=== PATIENT | female | born 1965 | race Two or more races ===

== ENCOUNTER → 2023-10-23 | Outpatient (CLI) | payer BC ==
[~2023-10-23] VITALS: Ht 152.4 cm; Wt 99.8 kg
[2023-10-23] MEDS: ADENOSINE 84 MG in GIVE UN-DILUTED 0 ML IV STA (12:25)
== END | disposition home or self-care (01) ==
LOC: XYW 10:50
PROVIDERS: ATTEND Specialist
DX: R07.89 Other chest pain (principal); R42 Dizziness and giddiness; R00.2 Palpitations
CPT/HCPCS: 78452; 93017; A9500; J0153